=== PATIENT | male | born 1990 | race Native Hawaiian/Other Pacific Islander ===

== ENCOUNTER 2021-11-21 22:16 | Observation (INO) | payer BC, OTHER ==
[~2021-11-21] VITALS: Ht 195.6 cm; Wt 104.8 kg
[2021-11-21 22:18] VITALS: BP 152/92; TEMP 97.9
[2021-11-21 22:56] LABS: PLATELET COUNT 233 K/uL (142-355)
[2021-11-21 23:00] VITALS: BP 139/94
[2021-11-21 23:02] LABS: POTASSIUM 3.6 mmol/L (3.6-5.2)
[2021-11-22] VITALS (9 sets, daily range): BP systolic 114–136; BP diastolic 65–92; TEMP 97.9–98.7; Ht 195.6 cm; Wt 104.8 kg
[2021-11-22] MEDS ORDERED: ADDERALL XR20 MG (04:26)
[2021-11-22 05:26] LABS: PLATELET COUNT 233 K/uL (142-355)
[2021-11-22 05:44] LABS: POTASSIUM 3.4 mmol/L (3.6-5.2)
[2021-11-23 03:47] VITALS: BP 120/59; TEMP 98.5
[2021-11-23 08:00] VITALS: BP 121/77; TEMP 98.4
[2021-11-23 12:00] VITALS: BP 135/71; TEMP 98.3
== END 2021-11-23 12:40 | disposition home or self-care (01) ==
LOC: ED 22:16 → MED/SURG 11-22 00:15
PROVIDERS: Emergency Medicine; ADMIT Internal Medicine Endocrinology, Diabetes & Metabolism; ATTEND Internal Medicine Endocrinology, Diabetes & Metabolism
DX: F41.8 Other specified anxiety disorders (principal); F15.20 Other stimulant dependence, uncomplicated; F22 Delusional disorders
CPT/HCPCS: 36415; 80048; 80053; 80307; 80320; 81000; 84443; 85027; 87635; 96374; 99220; 99284; G0378; J2060; U0003